=== PATIENT | female | born 1995 | race Two or more races ===

== ENCOUNTER 2021-12-23 13:47 | Emergency (ER) | payer OTHER ==
[~2021-12-23] VITALS: Ht 175.3 cm; Wt 104.3 kg
[2021-12-23 14:00] VITALS: BP 129/77
== END 2021-12-23 18:00 | disposition left against medical advice (07) ==
LOC: ER 13:47
DX: R53.1 Weakness (principal); Z53.21 Procedure and treatment not carried out due to patient leaving prior to being seen by health care provider